=== PATIENT | female | born 1985 | race American Indian/Alaskan Native ===

== ENCOUNTER 2020-02-15 15:16 | Observation (INO) | payer OTHER ==
--- NOTE | 2020-02-15 15:36 | Cat Scan Report ---
CT head/brain wo con INDICATION: MAIN. TECHNIQUE: Routine CT head without contrast. All CT scans at this location are performed using CT dos e reduction for ALARA by means of automated exposure control. COMPARISON: None. FINDINGS: BRAIN / INTRACRANIAL CONTENTS: No acute hemorrhage, mass effect, midline shift, or hydrocephalus. No appreciable acute large territorial or lacunar infarct. No chronic infarct or focal atrophy. Normal b rain volume and ventricular/sulcal size for age. ORBITS: No significant abnormality of visualized orbits. SINUSES / MASTOIDS: No significant abnormality of visualized sinuses and mastoid air cells. ADDITIONAL FINDINGS: None. IMPRESSION: 1. No acute intracranial abnormality. Signer Name: Syed Louise MD Signed: 02/15/2020 3:31 PM Workstation Name: [id number]
--- NOTE | 2020-02-15 15:49 | Emergency Department Report ---
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 She has hx of hypertension, no meds- lacunar stroke is a possibility but less likely. Would obtain MRI brain, dose of asa and treatment of migraine with headache cocktail per ED team. Mechanism of Stroke: Not Clear Metrics: Last Known Well: Unknown [facility] Notification Time: 02/15/2020 15:07:03 Arrival Time: 02/15/2020 15:15:39 Stamp Time: 02/15/2020 15:07:38 Time First Login Attempt: 02/15/2020 15:13:57 Video Start Time: 02/15/2020 15:13:57 Symptoms: weak, dizziness, presyncope, right sided numbness and trouble speaking NIHSS Start Assessment Time: 02/15/2020 15:20:57 Patient is not a candidate for tPA. Patient was not deemed candidate for tPA thrombolytics because of Last Well Known Above 4.5 Hours. Weight Noted by Staff: 137.[address] head showed no acute hemorrhage or acute core infarct. CT head was reviewed. Clinical Presentation is not Suggestive of Large Vessel Occlusive Disease ED Physician notified of diagnostic impression and management plan on 02/15/2020 15:47:28 Our recommendations are outlined below. Recommendations: Activate Stroke Protocol Admission/Order Set Stroke/Telemetry Floor Neuro Checks Bedside Swallow Eval DVT Prophylaxis IV Fluids, Normal Saline Head of Bed 30 Degrees Euglycemia and Avoid Hyperthermia (PRN Acetaminophen) Initiate Aspirin Routine Consultation with Inhouse Neurology for Follow up Care Sign Out: Discussed with Emergency Department Provider History of Present Illness: Patient is a 34 year old Female. Patient was brought by EMS for symptoms of weak, dizziness, presyncope, right sided numbness and trouble speaking Patient with history of hypertension, migraine headaches who presents after experiencing symptoms of dizziness, near syncope and numbness on the right side. She was eating and noted she became very dizzy with nausea and vomiting. It began yesterday when she had a migraine, she did not get enough sleep and the dizziness has been on and off since last week. The vomiting is new and she had fallen today and she denies LOC or head trauma. She has intense photophobia and feels as if the migraine is about to start. She appears to be in severe pain, but reports pain 4/10. Yesterday she had paresthesias in her extremities with the migraines as she does currently. She is not on any home medications There is no history of Recent Anticoagulants. There is no history of recent major surgery. There is no history of recent stroke. Examination: BP(160/98), Blood Glucose(96) 1A: Level of Consciousness - Alert; keenly responsive + 0 1B: Ask Month and Age - Both Questions Right + 0 1C: Blink Eyes & Squeeze Hands - Performs Both Tasks + 0 2: Test Horizontal Extraocular Movements - Normal + 0 3: Test Visual Canseco - No Visual Loss + 0 4: Test Facial Palsy (Use Grimace if Obtunded) - Normal symmetry + 0 5A: Test Left Arm Motor Drift - No Drift for 10 Seconds + 0 5B: Test Right Arm Motor Drift - No Drift for 10 Seconds + 0 6A: Test Left Leg Motor Drift - No Drift for 5 Seconds + 0 6B: Test Right Leg Motor Drift - No Drift for 5 Seconds + 0 7: Test Limb Ataxia (FNF/Heel-Vale) - No Ataxia + 0 8: Test Sensation - Mild-Moderate Loss: Less Sharp/More Dull + 1 9: Test Language/Aphasia - Normal; No aphasia + 0 10: Test Dysarthria - Normal + 0 11: Test Extinction/Inattention - No abnormality + 0 NIHSS Score: 1 Patient/Family was informed the Neurology Consult would happen via TeleHealth consult by way of interactive audio and video telecommunications and consented to receiving care in this manner. Due to the immediate potential for life-threatening deterioration due to underlying acute neurologic illness, I spent 35 minutes providing critical care. This time includes time for face to face visit via telemedicine, review of medical records, imaging studies and discussion of findings with providers, the patient and/or family. Dr Bridgette Bob [facility] Case [id number] -: week(s) Time: 13:43 Last Observed Normal: 13:43 Location: speech, other Presenting Symptoms: Present: Altered Mental Status History of same: Yes Place: home Severity: moderate Quality: weak, other Improves With: none Worsens With: none On Anticoagulants: No Context: sudden onset Associated Symptoms: denies other symptoms Treatments Prior to Arrival: none - Related Data Home Medications: Previous Rx's Medication Instructions Recorded Last Taken Type Acetaminophen [Acetaminophen TAB] 650 mg PO Q4H PRN tablet 02/16/20 Unknown Rx Aspirin 325 mg PO PRN PRN 15 Days #30 02/16/20 Unknown Rx tablet Butalb/Acetamin/Caff 50-325-40 1 tab PO Q8HR PRN #20 tablet 02/16/20 Unknown Rx [Fioricet 50-325-40] Magnesium Oxide [Magnesium] 400 mg PO PRN PRN #30 capsule 02/16/20 Unknown Rx Allergies/Adverse Reactions: Allergies Allergy/AdvReac Type Severity Reaction Status Date / Time No Known Allergies Allergy Unverified 02/15/20 16:11 ED Review of Systems ROS: Stated complaint: POSS CVA Other details as noted in HPI ED Past Medical Hx - Medications Home Medications: Home Medications Medication Instructions Recorded Confirmed Last Taken Type Acetaminophen [Acetaminophen TAB] 650 mg PO Q4H PRN tablet 02/16/20 Unknown Rx Aspirin 325 mg PO PRN PRN 15 Days #30 02/16/20 Unknown Rx tablet Butalb/Acetamin/Caff 50-325-40 1 tab PO Q8HR PRN #20 tablet 02/16/20 Unknown Rx [Fioricet 50-325-40] Magnesium Oxide [Magnesium] 400 mg PO PRN PRN #30 capsule 02/16/20 Unknown Rx ED Neuro Physical Exam - General Limitations: No Limitations (please see note), Other General appearance: alert Suspected Stroke: Yes - Head Head exam: Present: atraumatic - Eye Eye exam: Present: normal appearance - Neurological Exam Neurological exam: Present: alert - NIHSS Assessment Interval: Baseline 1a. Level of Consciousness: alert/keenly responsive 1b. LOC Questions: answers both correctly 1c. LOC Commands: performs tasks correctly 2. Best Gaze: normal 3. Visual: no visual loss 4. Facial Palsy: normal symmetrical movement 5b. Motor Arm Right: no drift 5a. Motor Arm Left: no drift 6a. Motor Leg Left: no drift 6b. Motor Leg Right: no drift 7. Limb Ataxia: absent 8. Sensory: mild/moderate sensory loss 9. Best Language: no aphasia 10. Dysarthria: normal 11. Extinction/Inattention: no abnormality Total Score: 1 Stroke Severity: Minor Stroke - Other Other exam information: for completed and accurate NIHSS please see neurology note ED Course Vital Signs 02/15/20 02/15/20 02/15/20 15:44 15:54 16:00 Temperature 98.8 F Pulse Rate 68 61 Respiratory 13 13 Rate Blood Pressure 162/91 162/91 Blood Pressure [Right] O2 Sat by Pulse 100 100 99 Oximetry 02/15/20 02/15/20 02/15/20 17:00 18:00 19:00 Temperature Pulse Rate 66 65 62 Respiratory 15 17 18 Rate Blood Pressure 151/83 152/84 144/86 Blood Pressure [Right] O2 Sat by Pulse 97 99 99 Oximetry 02/15/20 02/15/20 02/15/20 19:47 20:16 21:00 Temperature Pulse Rate 60 58 L Respiratory 18 16 Rate Blood Pressure 151/85 152/94 Blood Pressure 151/85 [Right] O2 Sat by Pulse 100 100 99 Oximetry 02/15/20 02/15/20 02/15/20 22:00 23:00 23:10 Temperature Pulse Rate 61 63 59 L Respiratory 17 17 17 Rate Blood Pressure 152/88 151/88 127/70 Blood Pressure [Right] O2 Sat by Pulse 99 99 100 Oximetry 02/16/20 00:00 Temperature Pulse Rate 64 Respiratory 16 Rate Blood Pressure 115/76 Blood Pressure [Right] O2 Sat by Pulse 99 Oximetry - Lab Data Result diagrams: 02/16/20 03:52 02/16/20 03:52 Lab Results 02/15/20 02/15/20 02/15/20 Range/Units 15:41 15:41 15:41 WBC 5.4 (4.5-11.0) K/mm3 RBC 4.69 (3.65-5.03) M/mm3 Hgb 14.0 (10.1-14.3) gm/dl Hct 42.1 (30.3-42.9) % MCV 90 (79-97) fl MCH 30 (28-32) pg MCHC 33 (30-34) % RDW 15.2 (13.2-15.2) % Plt Count 203 (140-440) K/mm3 Lymph % (Auto) 23.5 (13.4-35.0) % [place] % (Auto) 7.3 (0.0-7.3) % Eos % (Auto) 1.1 (0.0-4.3) % Baso % (Auto) 0.6 (0.0-1.8) % Lymph # 1.3 (1.2-5.4) K/mm3 [place] # 0.4 (0.0-0.8) K/mm3 Eos # 0.1 (0.0-0.4) K/mm3 Baso # 0.0 (0.0-0.1) K/mm3 Seg Neutrophils % 67.5 (40.0-70.0) % Seg Neutrophils # 3.6 (1.8-7.7) K/mm3 PT 12.6 (12.2-14.9) Sec. INR 0.96 (0.87-1.13) APTT 26.3 (24.2-36.6) Sec. Thrombin Time (15.1-19.6) Sec. Sodium 137 (137-145) mmol/L Potassium 3.2 L (3.6-5.0) mmol/L Chloride 100.7 (98-107) mmol/L Carbon Dioxide 22 (22-30) mmol/L Anion Gap 18 mmol/L BUN 8 (7-17) mg/dL Creatinine 0.9 (0.7-1.2) mg/dL Estimated GFR > 60 ml/min BUN/Creatinine Ratio 9 % Glucose 85 (65-100) mg/dL POC Glucose (70-105) Calcium 9.3 (8.4-10.2) mg/dL Troponin T < 0.010 (0.00-0.029) ng/mL HCG, Qual (Negative) 06/17/20 06/17/20 06/17/20 Range/Units 15:41 15:56 15:58 WBC (4.5-11.0) K/mm3 RBC (3.65-5.03) M/mm3 Hgb (10.1-14.3) gm/dl Hct (30.3-42.9) % MCV (79-97) fl MCH (28-32) pg MCHC (30-34) % RDW (13.2-15.2) % Plt Count (140-440) K/mm3 Lymph % (Auto) (13.4-35.0) % [place] % (Auto) (0.0-7.3) % Eos % (Auto) (0.0-4.3) % Baso % (Auto) (0.0-1.8) % Lymph # (1.2-5.4) K/mm3 [place] # (0.0-0.8) K/mm3 Eos # (0.0-0.4) K/mm3 Baso # (0.0-0.1) K/mm3 Seg Neutrophils % (40.0-70.0) % Seg Neutrophils # (1.8-7.7) K/mm3 PT (12.2-14.9) Sec. INR (0.87-1.13) APTT (24.2-36.6) Sec. Thrombin Time 15.8 (15.1-19.6) Sec. Sodium (137-145) mmol/L Potassium (3.6-5.0) mmol/L Chloride (98-107) mmol/L Carbon Dioxide (22-30) mmol/L Anion Gap mmol/L BUN (7-17) mg/dL Creatinine (0.7-1.2) mg/dL Estimated GFR ml/min BUN/Creatinine Ratio % Glucose (65-100) mg/dL POC Glucose 77 (70-105) Calcium (8.4-10.2) mg/dL Troponin T (0.00-0.029) ng/mL HCG, Qual Negative (Negative) Critical Care Time: Yes Critical care attestation.: If time is entered above; I have spent that time in minutes in the direct care of this critically ill patient, excluding procedure time. ED Disposition Clinical Impression: Weakness, Numbness, Hypokalemia, Acute headache, Full code status Disposition: DC-09 OP ADMIT IP TO THIS HOSP Is pt being admited?: Yes Does the pt Need Aspirin: Yes Condition: Stable
--- NOTE | 2020-02-15 15:51 | Emergency Department Report ---
ED Neuro Deficit HPI - General Chief Complaint: Neuro Symptoms/Deficit Stated Complaint: POSS CVA Time Seen by Provider: 02/15/20 15:38 Source: EMS Mode of arrival: Stretcher Limitations: Other - History of Present Illness Initial Comments: Patient is 34 years old female with history of hypertension, migraine. Patient brought to the emergency room via EMS from home for evaluation of possible stroke. Patient presented with headache, dizziness, difficulty speaking, facial numbness and weakness on upper and lower extremity. Patient symptoms of onset is unknown. Patient denied any neck pain, fever, chest pain or shortness of breath. Stroke protocol immediately initiated and patient moved to CT for a CT brain without contrast. Stroke telemetry neurology immediately consulted and patient examined by Dr Florentino., she stated that patient is not a TPA candidate because of unknown time of onset. She stated that patient is symptom is most likely complex migraine however possibility of lacunar infarct cannot be ruled out and advised that patient to be admitted for MRI and further work-up. -: Sudden Location: speech, left face, right arm, right leg Presenting Symptoms: Present: Weak/Paralyzed One Side, Facial Droop/Numbness, Unable to Speak Clearly History of same: Yes Place: home - Related Data Allergies/Adverse Reactions: Allergies Allergy/AdvReac Type Severity Reaction Status Date / Time No Known Allergies Allergy Unverified 02/15/20 16:11 ED Review of Systems ROS: Stated complaint: POSS CVA Other details as noted in HPI Comment: All other systems reviewed and negative Constitutional: denies: chills, fever Respiratory: denies: cough, orthopnea, shortness of breath, SOB with exertion, SOB at rest, wheezing Cardiovascular: denies: chest pain, palpitations Gastrointestinal: denies: abdominal pain, nausea, vomiting, diarrhea, constipation, hematemesis, melena, hematochezia Musculoskeletal: denies: back pain Neurological: headache, weakness, numbness, paresthesias. denies: confusion Psychiatric: anxiety ED Neuro Physical Exam - General Limitations: Other General appearance: alert, in no apparent distress, anxious Suspected Stroke: Yes - Head Head exam: Present: atraumatic, normocephalic, normal inspection - Eye Eye exam: Present: normal appearance, PERRL - ENT ENT exam: Present: normal exam, normal orophraynx, mucous membranes moist - Neck Neck exam: Present: normal inspection, full ROM. Absent: tenderness, meningismus, lymphadenopathy, thyromegaly - Respiratory Respiratory exam: Present: normal lung sounds bilaterally - Cardiovascular Cardiovascular Exam: Present: regular rate, normal rhythm, normal heart sounds - GI/Abdominal GI/Abdominal exam: Present: soft, normal bowel sounds. Absent: distended, tenderness, guarding, rebound, rigid, organomegaly, mass, bruit, pulsatile mass, hernia - Extremities Exam Extremities exam: Present: normal inspection, full ROM, normal capillary refill. Absent: pedal edema, calf tenderness - Neurological Exam Neurological exam: Present: alert, oriented X3 - NIHSS Assessment Interval: Baseline 1a. Level of Consciousness: alert/keenly responsive 1b. LOC Questions: answers both correctly 1c. LOC Commands: performs tasks correctly 2. Best Gaze: normal 3. Visual: no visual loss 4. Facial Palsy: normal symmetrical movement 5b. Motor Arm Right: no drift 5a. Motor Arm Left: no drift 6a. Motor Leg Left: no drift 6b. Motor Leg Right: no drift 7. Limb Ataxia: absent 8. Sensory: mild/moderate sensory loss 9. Best Language: no aphasia 10. Dysarthria: normal 11. Extinction/Inattention: no abnormality Total Score: 1 Stroke Severity: Minor Stroke - Psychiatric Psychiatric exam: Present: anxious - Skin Skin exam: Present: warm, intact, normal color ED Course Vital Signs 02/15/20 02/15/20 02/15/20 15:44 15:54 16:00 Temperature 98.8 F Pulse Rate 68 61 Respiratory 13 13 Rate Blood Pressure 162/91 162/91 Blood Pressure [Right] O2 Sat by Pulse 100 100 99 Oximetry 02/15/20 02/15/20 02/15/20 17:00 18:00 19:00 Temperature Pulse Rate 66 65 62 Respiratory 15 17 18 Rate Blood Pressure 151/83 152/84 144/86 Blood Pressure [Right] O2 Sat by Pulse 97 99 99 Oximetry 02/15/20 02/15/20 02/15/20 19:47 20:16 21:00 Temperature Pulse Rate 60 58 L Respiratory 18 16 Rate Blood Pressure 151/85 152/94 Blood Pressure 151/85 [Right] O2 Sat by Pulse 100 100 99 Oximetry 02/15/20 02/15/20 02/15/20 22:00 23:00 23:10 Temperature Pulse Rate 61 63 59 L Respiratory 17 17 17 Rate Blood Pressure 152/88 151/88 127/70 Blood Pressure [Right] O2 Sat by Pulse 99 99 100 Oximetry 02/16/20 00:00 Temperature Pulse Rate 64 Respiratory 16 Rate Blood Pressure 115/76 Blood Pressure [Right] O2 Sat by Pulse 99 Oximetry - Lab Data Result diagrams: 02/16/20 03:52 02/16/20 03:52 Lab Results 02/15/20 02/15/20 02/15/20 Range/Units 15:41 15:41 15:41 WBC 5.4 (4.5-11.0) K/mm3 RBC 4.69 (3.65-5.03) M/mm3 Hgb 14.0 (10.1-14.3) gm/dl Hct 42.1 (30.3-42.9) % MCV 90 (79-97) fl MCH 30 (28-32) pg MCHC 33 (30-34) % RDW 15.2 (13.2-15.2) % Plt Count 203 (140-440) K/mm3 Lymph % (Auto) 23.5 (13.4-35.0) % [place] % (Auto) 7.3 (0.0-7.3) % Eos % (Auto) 1.1 (0.0-4.3) % Baso % (Auto) 0.6 (0.0-1.8) % Lymph # 1.3 (1.2-5.4) K/mm3 [place] # 0.4 (0.0-0.8) K/mm3 Eos # 0.1 (0.0-0.4) K/mm3 Baso # 0.0 (0.0-0.1) K/mm3 Seg Neutrophils % 67.5 (40.0-70.0) % Seg Neutrophils # 3.6 (1.8-7.7) K/mm3 PT 12.6 (12.2-14.9) Sec. INR 0.96 (0.87-1.13) APTT 26.3 (24.2-36.6) Sec. Thrombin Time (15.1-19.6) Sec. Sodium 137 (137-145) mmol/L Potassium 3.2 L (3.6-5.0) mmol/L Chloride 100.7 (98-107) mmol/L Carbon Dioxide 22 (22-30) mmol/L Anion Gap 18 mmol/L BUN 8 (7-17) mg/dL Creatinine 0.9 (0.7-1.2) mg/dL Estimated GFR > 60 ml/min BUN/Creatinine Ratio 9 % Glucose 85 (65-100) mg/dL POC Glucose (70-105) Calcium 9.3 (8.4-10.2) mg/dL Troponin T < 0.010 (0.00-0.029) ng/mL HCG, Qual (Negative) 02/15/20 02/15/20 02/15/20 Range/Units 15:41 15:56 15:58 WBC (4.5-11.0) K/mm3 RBC (3.65-5.03) M/mm3 Hgb (10.1-14.3) gm/dl Hct (30.3-42.9) % MCV (79-97) fl MCH (28-32) pg MCHC (30-34) % RDW (13.2-15.2) % Plt Count (140-440) K/mm3 Lymph % (Auto) (13.4-35.0) % [place] % (Auto) (0.0-7.3) % Eos % (Auto) (0.0-4.3) % Baso % (Auto) (0.0-1.8) % Lymph # (1.2-5.4) K/mm3 [place] # (0.0-0.8) K/mm3 Eos # (0.0-0.4) K/mm3 Baso # (0.0-0.1) K/mm3 Seg Neutrophils % (40.0-70.0) % Seg Neutrophils # (1.8-7.7) K/mm3 PT (12.2-14.9) Sec. INR (0.87-1.13) APTT (24.2-36.6) Sec. Thrombin Time 15.8 (15.1-19.6) Sec. Sodium (137-145) mmol/L Potassium (3.6-5.0) mmol/L Chloride (98-107) mmol/L Carbon Dioxide (22-30) mmol/L Anion Gap mmol/L BUN (7-17) mg/dL Creatinine (0.7-1.2) mg/dL Estimated GFR ml/min BUN/Creatinine Ratio % Glucose (65-100) mg/dL POC Glucose 77 (70-105) Calcium (8.4-10.2) mg/dL Troponin T (0.00-0.029) ng/mL HCG, Qual Negative (Negative) - EKG Data -: EKG Interpreted by Me EKG shows normal: sinus rhythm - Radiology Data Radiology results: report reviewed - Medical Decision Making Patient is 34 years old female with history of hypertension, migraine. Patient brought to the emergency room via EMS from home for evaluation of possible stroke. Patient presented with headache, dizziness, difficulty speaking, facial numbness and weakness on upper and lower extremity. Patient symptoms of onset is unknown. Patient denied any neck pain, fever, chest pain or shortness of b reath. Stroke protocol immediately initiated and patient moved to CT for a CT brain without contrast. Stroke telemetry neurology immediately consulted and patient examined by Dr Florentino., she stated that patient is not a TPA candidate because of unknown time of onset. She stated that patient is symptom is most likely complex migraine however possibility of lacunar infarct cannot be ruled out and advised that patient to be admitted for MRI and further work-up. I discussed the patient with Dr. Palumbo for admission. Critical Care Time: Yes Critical care time in (mins) excluding proc time.: 30 Critical care attestation.: If time is entered above; I have spent that time in minutes in the direct care of this critically ill patient, excluding procedure time. ED Disposition Clinical Impression: Weakness, Numbness, Hypokalemia, Acute headache Disposition: OP ADMIT IP TO THIS HOSP Is pt being admited?: Yes Condition: Stable
[2020-02-15] MEDS ORDERED: ONDANSETRON 4 MG/2 ML INJ IV ONE (15:53)
[2020-02-15] MEDS ORDERED: MORPHINE 4 MG/1 ML INJ IV ONE (15:53)
[2020-02-15] MEDS ORDERED: ASPIRIN 81 MG TAB CHEW PO ONE (15:53)
[2020-02-15 15:55] LABS: Basophils % (Auto) 0.6 % (0.0-1.8); Eosinophils # (Auto) 0.1 K/mm3 (0.0-0.4); Eosinophils % (Auto) 1.1 % (0.0-4.3); Hematocrit 42.1 % (30.3-42.9); Lymphocytes # (Auto) 1.3 K/mm3 (1.2-5.4); Lymphocytes % (Auto) 23.5 % (13.4-35.0); Mean Corpuscular HGB Conc 33 % (30-34); Mean Corpuscular Volume 90 fl (79-97); Monocytes # (Auto) 0.4 K/mm3 (0.0-0.8); Monocytes % (Auto) 7.3 % (0.0-7.3); Platelet Count 203 K/mm3 (140-440); Red Blood Count 4.69 M/mm3 (3.65-5.03); Red Cell Distribution Width 15.2 % (13.2-15.2)
[2020-02-15 16:08] LABS: INR 0.96 (0.87-1.13); Partial Thromboplastin Time 26.3 Sec. (24.2-36.6)
[2020-02-15 16:09] LABS: BUN/Creatinine Ratio 9; Blood Urea Nitrogen 8 mg/dL (7-17); Calcium 9.3 mg/dL (8.4-10.2); Hemolysis Index 9
[2020-02-15] MEDS ORDERED: POTASSIUM CHLORIDE ER 20 MEQ TAB PO ONE (19:20)
[2020-02-15] MEDS ORDERED: METOCLOPRAMIDE 10 MG TAB PO PRN (21:42)
[2020-02-15] MEDS ORDERED: ACETAMINOPHEN 325 MG TAB PO PRN ×2 (21:42)
[2020-02-15] MEDS ORDERED: PROMETHAZINE 25 MG RECT SUPP PR PRN (21:42)
[2020-02-15] MEDS ORDERED: ONDANSETRON 4 MG/2 ML INJ IV PRN (21:42)
[2020-02-15] MEDS ORDERED: MAGNESIUM HYDROXIDE (MOM) ORAL LIQD UDC PO PRN (21:42)
[2020-02-15] MEDS ORDERED: MORPHINE 2 MG/1 ML INJ IV PRN (21:42)
--- NOTE | 2020-02-15 21:53 | History and Physical Report ---
History of Present Illness Date of examination: 02/15/20 Date of admission: 02/15/2020 Chief complaint: Right-sided weakness and numbness Headache Dizziness History of present illness: 84-year-old -[place] female with known history of hypertension and histo ry of migraine headaches brought into the emergency room today by EMS for possible CVA. Patient states she has been having headache, dizziness, weakness and numbness in the right upper and lower extremities for quite some time now but got worse today. Patient had some difficulty speaking today but has improved since getting to the emergency room. She denies any difficulty swallowing. Patient denies any fever or chills, no nausea vomiting, no abdominal pain. CT scan of the head done upon arrival was unremarkable. Patient was evaluated by teleneurologist and found not to be a TPA candidate. She will be further worked up for possible CVA. Past History Past Medical History: hypertension Past Surgical History: No surgical history Social history: smoking (Smokes tobacco occasionally), alcohol abuse Family history: no significant family history Medications and Allergies Allergies Allergy/AdvReac Type Severity Reaction Status Date / Time No Known Allergies Allergy Unverified 02/15/20 16:11 Review of Systems Constitutional: no fever, no chills Ears, nose, mouth and throat: no nasal congestion, no sore throat Cardiovascular: no chest pain, no palpitations, no syncope Respiratory: no cough, no shortness of breath Gastrointestinal: no abdominal pain, no nausea, no vomiting, no diarrhea Genitourinary Female: no pelvic pain, no flank pain, no dysuria, no hematuria Musculoskeletal: no neck pain, no low back pain Integumentary: no rash, no pruritis Neurological: weakness (Right-sided), numbness (Right-sided), tingling (Tingling on tips of right hand fingers), vertigo, migraines, no syncope, no aphasia, no change in speech, no confusion, no gait dysfunction Psychiatric: no anxiety, no depression Exam - Constitutional Vitals: Temp Pulse Resp BP Pulse Ox 98.8 F 60 18 151/85 100 02/15/20 15:54 02/15/20 19:47 02/15/20 19:47 02/15/20 19:47 02/15/20 19:47 General appearance: Present: no acute distress, well-nourished - EENT Eyes: Present: PERRL, EOM intact. Absent: scleral icterus ENT: hearing intact, clear oral mucosa, dentition normal - Neck Neck: Present: supple, normal ROM - Respiratory Respiratory effort: normal Respiratory: bilateral: CTA - Cardiovascular Rhythm: regular Heart Sounds: Present: S1 & S2. Absent: gallop, systolic murmur, diastolic murmur - Extremities Extremities: no ischemia, pulses intact, pulses symmetrical, No edema, Full ROM Peripheral Pulses: within normal limits - Abdominal General gastrointestinal: Present: soft, non-tender, non-distended, normal bowel sounds. Absent: mass - Integumentary Integumentary: Absent: clear, warm, dry, jaundice, pale - Musculoskeletal Musculoskeletal: strength equal bilaterally - Psychiatric Psychiatric: appropriate mood/affect, intact judgment & insight, memory intact, cooperative - Neurologic Neurologic: CNII-XII intact, no focal deficits, moves all extremities HEART Score - HEART Score Troponin: Troponin T < 0.010 ng/mL (0.00-0.029) 02/15/20 15:41 Results - Labs CBC & Chem 7: 02/16/20 03:52 02/16/20 03:52 Labs: Abnormal lab results 02/15/20 Range/Units 15:41 Potassium 3.2 L (3.6-5.0) mmol/L Assessment and Plan - Patient Problems (1) Acute headache Current Visit: Yes Status: Acute Plan to address problem: Etiology is unclear. Possibly migraine headache. Patient placed on analgesic medication. We will request neurology evaluation and recommendation. (2) Hypokalemia Current Visit: Yes Status: Acute Plan to address problem: Potassium will be repleted and will monitor chemistry (3) Numbness Current Visit: Yes Status: Acute Plan to address problem: She has been having numbness and tingling sensation in her right upper right lower extremity. Patient will be worked up for possible CVA. Will place on daily aspirin and will be worked up for possible CVA. (4) DVT prophylaxis Current Visit: Yes Status: Acute Plan to address problem: Patient placed on subcutaneous heparin (5) Full code status Current Visit: Yes Status: Acute
[2020-02-15] MEDS ORDERED: HEPARIN 5,000 UNIT/1 ML VIAL ONE (23:41)
[2020-02-15] MEDS: HEPARIN 5,000 UNIT/1 ML VIAL SUB-Q SCH (23:43)
[2020-02-16 04:30] LABS: Basophils % (Auto) 0.7 % (0.0-1.8); Eosinophils # (Auto) 0.1 K/mm3 (0.0-0.4); Eosinophils % (Auto) 1.3 % (0.0-4.3); Hematocrit 35.8 % (30.3-42.9); Hemoglobin 11.8 gm/dl (10.1-14.3); Lymphocytes # (Auto) 2.4 K/mm3 (1.2-5.4); Lymphocytes % (Auto) 35.2 % (13.4-35.0); Mean Corpuscular HGB Conc 33 % (30-34); Mean Corpuscular Volume 89 fl (79-97); Monocytes # (Auto) 0.6 K/mm3 (0.0-0.8); Monocytes % (Auto) 8.7 % (0.0-7.3); Platelet Count 192 K/mm3 (140-440); Red Cell Distribution Width 14.6 % (13.2-15.2)
[2020-02-16 04:36] LABS: INR 1.15 (0.87-1.13)
[2020-02-16 04:49] LABS: BUN/Creatinine Ratio 11; Blood Urea Nitrogen 8 mg/dL (7-17); Calcium 8.2 mg/dL (8.4-10.2); Hemolysis Index 1; LDL Cholesterol,Direct 90 mg/dL (50-130)
[2020-02-16 05:04] LABS: Chol/HDL Ratio 2.31 %; HDL Cholesterol 60 mg/dL (40-59)
[2020-02-16] MEDS: HEPARIN 5,000 UNIT/1 ML VIAL SUB-Q SCH ×2 (05:17→13:29)
[2020-02-16] MEDS ORDERED: ASPIRIN 325 MG TAB PO SCH (10:00)
--- NOTE | 2020-02-16 12:01 | Magnetic Resonance Report ---
MRI BRAIN 02/16/2020 INDICATION / CLINICAL INFORMATION: Stroke. Neurologic deficits <6 hours or symptoms present upon awakening. TECHNIQUE: Multiplanar, multisequence MR images of the brain were obtained. COMPARISON: CT brain 02/15/2020 FINDINGS: BRAIN / INTRACRANIAL CONTENTS: Unenhanced and enhanced MR images of the brain were obtained. There is no evidence of acute abnormality. Ventricles and sulci are normal in size and shape. There is no evidence of ischemic injury, demyelination, hemorrhage, or mass. There are no abnormal ex tra-axial fluid collections. Postcontrast images demonstrate no abnormal contrast enhancement. EXTRACRANIAL: Unremarkable CRANIOCERVICAL JUNCTION: No significant abnormality. VASCULAR FLOW-VOIDS: No significant abnormality. IMPRESSION: No acute abnormality. Negative unenhanced and enhanced MRI of the brain. Signer Name: Liang Swenson MD Signed: 02/16/2020 11:57 AM Workstation Name: [id number]
--- NOTE | 2020-02-16 12:03 | Magnetic Resonance Report ---
MRA NECK 02/16/2020 INDICATION / CLINICAL INFORMATION: MAIN. TECHNIQUE: Routine MRA of the neck are performed. 3-D/MIP reformats postprocessed. Percentage stenosis is deter mined by direct quantitative measurements of distal internal carotid artery diameter compared with no rmal reference segments or by criteria similar to NASCET where applicable. COMPARISON: None available. FINDINGS: Unenhanced and enhanced MR angiographic images of the neck were obtained. 3D/MIP reformats were post- processed. Carotid bifurcations: There is no evidence of carotid bifurcation stenosis. Common carotid arteries: No significant abnormality. Cervical internal carotid arteries: No significant abnormality. Cervical vertebral arteries: No significant abnormality. Visible aortic arch: Unremarkable IMPRESSION: No significant abnormality. Signer Name: Liang Swenson MD Signed: 02/16/2020 11:58 AM Workstation Name: [id number]
--- NOTE | 2020-02-16 12:04 | Magnetic Resonance Report ---
MRA HEAD 02/16/2020 INDICATION / CLINICAL INFORMATION: MAIN. Stroke TECHNIQUE: Routine MRA of the head is performed. 3-D/MIP reformats postprocessed. COMPARISON: None available. FINDINGS: MRA HEAD: Intracranial internal carotid arteries: No significant abnormality. Anterior cerebral arteries: No significant abnormality. Middle cerebral arteries: No significant abnormality. Intracranial vertebral arteries: No significant abnormality. Basilar artery: No significant abnormality. Posterior cerebral arteries: No significant abnormality. IMPRESSION: No significant abnormality. Signer Name: Liang Swenson MD Signed: 02/16/2020 11:59 AM Workstation Name: [id number]
--- NOTE | 2020-02-16 12:35 | Consultation ---
History of Present Illness Consult date: 02/16/20 Reason for Consult: Right sided numbness, Headache Chief complaint: Right sided numbness, Headache History of present illness: Patient is a 34 y/o woman w/ a h/o HTN, migraines. She presented yesterday with a ALEXANDER, dizziness, and right UE numbness/weakness. She also c/o nausea, which started about 7 days ago. ALEXANDER is described as frontal, 5/10, a/w photophobia and and scintillating scotoma. She also states that she experienced RUE mild numbness and weakness, that lasted about 8 minutes. She had taken motrin when ALEXANDER began. She states that numbness/weakness of RUE improved once headache improved. She has had similar symptoms of unilateral right UE numbness in the past, which was associated with a migraine. She also has had previous episode of difficulty speaking a/w migraine. She had some c/o difficulty speaking yesterday at time of migraine, which lasted for about 5 minutes. She also states that she had not be en getting adequate amounts of sleep at night recently. She states that she has about 3 days of headache per month. Past History Past Medical History: hypertension, other (migraines) Past Surgical History: No surgical history Social history: smoking (Smokes tobacco occasionally), alcohol abuse Family history: no significant family history Medications and Allergies Allergies Allergy/AdvReac Type Severity Reaction Status Date / Time No Known Allergies Allergy Unverified 02/15/20 16:11 Home Medications Medication Instructions Recorded Confirmed Last Taken Type Acetaminophen [Acetaminophen TAB] 650 mg PO Q4H PRN tablet 02/16/20 Unknown Rx Butalb/Acetamin/Caff 50-325-40 1 tab PO Q8HR PRN #20 tablet 02/16/20 Unknown Rx [Fioricet 50-325-40] Active Meds: Active Medications Acetaminophen (Tylenol) 650 mg PO Q4H PRN PRN Reason: Pain, Mild (1-3) Aspirin (Aspirin) 325 mg PO QDAY GENET Bisacodyl (Dulcolax) 10 mg NH QDAY PRN PRN Reason: Constipation Heparin Sodium (Porcine) (Heparin) 5,000 unit SUB-Q Q8HR GENET Last Admin: 02/16/20 05:17 Dose: 5,000 unit Documented by: Magnesium Hydroxide (Milk Of Magnesia) 30 ml PO Q4H PRN PRN Reason: Constipation Metoclopramide HCl (Reglan) 10 mg PO Q6H PRN PRN Reason: Nausea And Vomiting Morphine Sulfate (Morphine) 2 mg IV Q4H PRN PRN Reason: Pain, Moderate (4-6) Ondansetron HCl (Zofran) 4 mg IV Q8H PRN PRN Reason: Nausea And Vomiting Promethazine HCl (Phenergan) 25 mg NH Q6H PRN PRN Reason: Nausea And Vomiting Sodium Chloride (Sodium Chloride Flush Syringe 10 Ml) 10 ml IV PRN PRN PRN Reason: LINE FLUSH Sodium Chloride (Sodium Chloride Flush Syringe 10 Ml) 10 ml IV BID GENET Last Admin: 02/15/20 23:45 Dose: 10 ml Documented by: Review of Systems All systems: negative Neurological: weakness, parathesias, migraines, change in speech Physical Examination - Vital Signs Vital Signs: Vital Signs Pulse Ox 100 02/15/20 15:44 - Physical Exam Narrative exam: Patient is alert, awake, oriented x4, follows complex commands. No dysarthria or aphasia noted. PERRL, EOMI, VFF, tongue midline, mild decrease on Rt. to LT, no facial weakness noted. 5/5 strength in RUE/LUE/LLE, 4/5 in RLE however this improved in the afternoon. Decreased on Rt. to light touch. Bilaterally intact to FTN and HTS. Results - Laboratory Findings CBC and BMP: 02/16/20 03:52 02/16/20 03:52 Abnormal Lab Findings: Abnormal Labs 02/15/20 02/16/20 02/16/20 15:41 03:52 03:52 Lymph % (Auto) 35.2 H [place] % (Auto) 8.7 H INR 1.15 H Potassium 3.2 L Glucose Calcium HDL Cholesterol 02/16/20 03:52 Lymph % (Auto) [place] % (Auto) INR Potassium Glucose 101 H Calcium 8.2 L HDL Cholesterol 60 H Assessment and Plan Patient is a 34 y/o woman w/ a h/o HTN, migraines, p/w headache a/w RUE numbness and weakness, nausea. According to the patient's clinical findings, it is likely that she has had a sporadic hemiplegic migraine. Of note, patient has had similar episodes in the past associated with migraines. Plan: 1. Sporadic hemiplegic migraines: - MRI brain: no acute abnormalities. - MRA head/neck: no significant stenosis - Recommend abortive therapy of: magnesium 400mg, and ASA 325mg x2, to be given when patient has another aura preceeding migraine. - As patient does not have frequent enough monthly migraines, it does not warra nt prophylactic management at this time, given that she has about 3 days of headaches per month. - If magnesium and ASA does not improve headaches in the future, can consider Lasmiditan, however given cost of medication, and uncertainty of insurance will cover it for patient, will not recommend it at this time. - Recommend for patient to follow up with neurology in 3-4 weeks. - Will sign off as patient is now back at baseline, neurologic investigations are complete, and treatment plan is in place. Thank you for allowing me to take part in the care of this patient. Blaze Brothers MD Neurology This clinical encounter was provided via live telemedicine platform. Consultative service was provided for neurology to support local providers. The Acute Teleneurology team should be contacted with any neurologic worsening or clinical changes, new test results, or new patient history that is reported to or discovered by the local team following completion of the teleneurology consultation, specifically that which has the potential to impact the consultative recommendations. Patient/Family was informed the Neurology Consult would happen via TeleHealth consult by way of interactive audio and video telecommunications and consented to receiving care in this manner. Due to the potential for life-threatening deterioration due to underlying neurologic illness, and limited resources available for patient care, telemedicine was used as means of patient care. Telemedicine consultation is l imited in the extent of physical exam that can be virtually provided. Time spent evaluating patient includes time for face to face visit via telemedicine, review of medical records, imaging studies and discussion of findings with providers, the patient and/or family.
--- NOTE | 2020-02-16 13:54 | Vascular Lab Report ---
BILATERAL CAROTID DOPPLER ULTRASOUND INDICATION : stroke TECHNIQUE: Grayscale and color Doppler imaging performed through the neck. COMPARISON: None FINDINGS: Right: There is no significant atherosclerotic disease. Peak systolic velocity in the CCA is 59 cm/ s with end-diastolic velocity of 15 cm/s. Peak systolic velocity in the proximal ICA is 78 cm/s with end-diastolic velocity of 25 cm/s. ICA to CCA ratio is less than 2. There is antegrade flow in the E CA and the vertebral artery. Left: There is no significant atherosclerotic disease. Peak systolic velocity in the CCA is 74 cm/s w ith end-diastolic velocity of 24 cm/s. Peak systolic velocity in the proximal ICA is 87 cm/s with end -diastolic velocity of 39 cm/s. ICA to CCA ratio is less than 2. There is antegrade flow in the ECA and the vertebral artery. IMPRESSION: No hemodynamically significant stenosis by NASCET criteria. Doppler velocities indicate l ess than 50% luminal narrowing throughout both carotid systems. Signer Name: Nabeel Elkins Jr, MD Signed: 02/16/2020 1:50 PM Workstation Name: [id number]
--- NOTE | 2020-02-16 15:31 | Discharge Summary ---
Providers - Providers Date of Admission: 02/15/20 21:42 Date of discharge: 02/16/20 Attending physician: GEOVANNI COLLAZO 02/15/20 21:42 Consult to Dietitian/Nutrition [CONS] Routine Physician Instructions: Reason For Exam: Reason for Consult: Nutrition Recommendations Reason for Consult: Diet education Consult to Physician [CONS] Routine Comment: Consulting Provider: THU MARQUES Physician Instructions: Reason For Exam: RIGHT SIDED WEAKNESS, NUMBNESS AND HEADACHE Occupational Therapy Evaluate and Treat [CONS] Routine Comment: Reason For Exam: Neuro deficits Physical Therapy Evaluation and Treat [CONS] Routine Comment: Reason For Exam: Neuro deficits Primary care physician: PUMP ERECTOR Hospitalization Condition: Stable Pertinent studies: MRI brain, carotid Doppler, echocardiogram Hospital course: Patient is alert and oriented States her speech is back to normal Complaints of headaches off and on States she has migraine headaches Takes ibuprofen but states that ibuprofen is causing problems with her stomach Neurology note reviewed Work-up for stroke is negative MRI brain with and without: No acute lesion Echocardiogram: Normal LV function Carotid arterial Doppler: Results reviewed no hemodynamically significant stenosis Patient is medically stable for discharge PT note reviewed No further recommendations from PT Final diagnosis Complex migraine headaches Follow-up with neurology as an outpatient Disposition: DC-01 TO HOME OR SELFCARE Time spent for discharge: 38 minutes Core Measure Documentation - Palliative Care Palliative Care/ Comfort Measures: Not Applicable - Core Measures Any of the following diagnoses?: none Exam - Constitutional Vitals: Temp Pulse Resp BP Pulse Ox 98.5 F 76 18 158/97 100 02/16/20 07:37 02/16/20 07:37 02/16/20 11:44 02/16/20 07:37 02/16/20 07:37 General appearance: Present: no acute distress, well-nourished - EENT Eyes: Present: PERRL, EOM intact ENT: hearing intact, clear oral mucosa - Neck Neck: Present: supple, normal ROM - Respiratory Respiratory effort: normal Respiratory: bilateral: CTA - Cardiovascular Rhythm: regular Heart Sounds: Present: S1 & S2 - Extremities Extremities: No edema - Abdominal General gastrointestinal: Present: soft, non-tender Female genitourinary: Present: deferred - Rectal Rectal Exam: deferred - Integumentary Integumentary: Present: clear - Musculoskeletal Musculoskeletal: strength equal bilaterally - Psychiatric Psychiatric: appropriate mood/affect - Neurologic Neurologic: no focal deficits Plan Activity: no restrictions Weight Bearing Status: Full Weight Bearing Diet: regular Follow up with: PRIMARY CARE, [Primary Care Provider] - 3-5 Days JOESPH FULLER MD [Staff Physician] - 14 Days Prescriptions: Butalb/Acetamin/Caff 50-325-40 [Fioricet 50-325-40] 1 tab PO Q8HR PRN #20 tablet PRN Reason: Headache
[2020-02-16 16:44] VITALS: BP 153/89
== END 2020-02-16 18:58 | disposition home or self-care (01) ==
LOC: ED 15:16 → 4A 21:42
PROVIDERS: ADMIT Internal Medicine Geriatric Medicine; ATTEND Internal Medicine
DX: G43.409 Hemiplegic migraine, not intractable, without status migrainosus (principal); E87.6 Hypokalemia; I10 Essential (primary) hypertension; F17.200 Nicotine dependence, unspecified, uncomplicated; Z79.899 Other long term (current) drug therapy; Z71.6 Tobacco abuse counseling
CPT/HCPCS: 36415; 70450; 70544; 70549; 70553; 80048; 80061; 82962; 84484; 84703; 85025; 85610; 85670; 85730; 93005; 93306; 93880; 96372; 96374; 96375; 97161; 99291; 99406; A9577; G0378; J1644; J2270; J2405